=== PATIENT | female | born 1980 | race Caucasian/White ===

== ENCOUNTER → 2024-08-07 09:51 | Outpatient (BNVA) | payer OTHER, SELFPAY | PROVIDERS: PCP Family Medicine; Visit Provider Surgery | DX: R10.9 Unspecified abdominal pain (principal); Z12.11 Encounter for screening for malignant neoplasm of colon; R12 Heartburn | CPT/HCPCS: 86003; 86008 ==

== ENCOUNTER 2024-08-12 09:48 | Day surgery (SDC) | payer OTHER, SELFPAY ==
[2024-08-12 10:20] VITALS: BP 157/110; PULSE 100; RESP 18; TEMP 36.5; O2SAT 97; BMI 36.6
[2024-08-12 10:26] LABS: OR HCG Qualitative Urine Negative (Negative)
--- NOTE | 2024-08-12 10:32 | ANES.PREANE2 ---
Pre-Anesthetic Assessment Height/Weight: Height 1.65 m Weight 99.79 kg Temp Pulse Resp BP Pulse Ox O2 Del Method 97.7 F 100 18 157/110 97 Room Air 08/12/24 10:20 08/12/24 10:20 08/12/24 10:20 08/12/24 10:20 08/12/24 10:20 08/12/24 10:20 Operation Date: 08/12/24 11:15 Proposed Procedures p EGD 56424, 00263, G0121, Z12.11 R12, R10.9(Not Applicable) - Marcel Gonzalez DO s Colonoscopy(Not Applicable) - Marcel Gonzalez DO Familial anesthetic complications: None Was Beta Karen taken within 24 hours: N/A Was Clonidine taken within 24 hours: N/A Last intake: Intake Last Liquid Date 08/11/24 Last Liquid Time 23:30 Last Solid Date 08/10/24 Last Solid Time 22:00 Social No alcohol and No tobacco (Marijuana daily) Exam alert, oriented x 3, clear to auscultation bilaterally and regular rate & rhythm Airway Submandibular: within normal limits Cervical ROM: within normal limits Mallampati: Class II Dentition: full Comments: Comments: Bridge History/ROS No significant history except as noted and No significant complaints Pulmonary None reported CV/HEM Anemia and Hypertension POTS Chronic Renal Insufficiency (CKD stage 2) Hepatic None reported GI Gastroesophageal Reflux Disease (Controlled with meds) Metabolic Goiter Musc/skel Rheumatoid Arthritis Neuropsych None reported Anesthetic Plan ASA status: 3 Anesthesia: Anesthesia Evaluation, General and MAC Risk of > 500 ml blood loss (7ml/kg in children): No Medications/Allergies Home Medications ?Medication ?Instructions ?Recorded ?Confirmed ?Last Taken ?Type amitriptyline 75 mg tablet 75 mg PO QDAY 08/07/24 08/12/24 08/11/24 History cyanocobalamin (vitamin B-12) 1,000 mcg IM .1x month 08/07/24 08/12/24 Unknown History 1,000 mcg/mL injection solution diclofenac sodium 75 mg 75 mg PO DAILY PRN Pain 08/07/24 08/12/24 08/11/24 History tablet,delayed release diltiazem HCl 180 mg 180 mg PO DAILY 08/07/24 08/12/24 08/11/24 History capsule,extended release 24 hr (Cardizem CD) fexofenadine 180 mg tablet 180 mg PO DAILY 08/07/24 08/12/24 08/11/24 History (Allergy Relief (fexofenadine)) levonorgestrel 0.15 mg-ethinyl 1 tab PO DAILY 08/07/24 08/12/24 08/11/24 History estradiol 0.03 mg tablet (Evgeny (28)) lisinopril 10 mg tablet 10 mg PO QDAY 08/07/24 08/12/24 08/11/24 History omeprazole 40 mg capsule,delayed 40 mg PO QDAY 08/07/24 08/12/24 08/11/24 History release paroxetine HCl 20 mg tablet 20 mg PO QAM 08/07/24 08/12/24 08/11/24 History Allergies Allergy/AdvReac Type Severity Reaction Status Date / Time cephalexin (From Keflex) Allergy ALGY-Hives Verified 08/11/24 12:22 chicken derived Allergy ALGY-Hives Verified 08/12/24 10:18 ciprofloxacin (From Cipro) Allergy ALGY-Hives Verified 08/11/24 12:22 erythromycin base Allergy ALGY-Hives Verified 08/11/24 12:22 Peanut and Related Legumes Allergy ALGY-Hives Verified 08/12/24 10:18 Penicillins Allergy was told Verified 08/11/24 12:22 as a baby not to take Pork/Porcine Containing Allergy ALGY-Hives Verified 08/12/24 10:18 Products Sulfa (Sulfonamide Allergy ALGY-Hives Verified 08/11/24 12:22 Antibiotics) PFSH Anesthesia Family History Mother Diabetes Family/Other Cancer Aunt on mothers side-colon cancer Family/Other Colon cancer uncle on dads side Grandfather Cancer prostate Social History Smoking and tobacco/nicotine status: never used tobacco/nicotine Alcohol intake: current Alcohol intake frequency: few times a month Female Reproductive History Date of last menstrual period: 08/10/24 Data Anesthesia Cardiac Studies: No Data to Display
[2024-08-12] MEDS: sodium chloride 0.9% 500 ML 15 ML IV (10:34)
--- NOTE | 2024-08-12 10:45 | W.PM.OPSUD ---
Surgery/Procedure H&P Update DATE OF PROCEDURE: August 12, 2024 DATE H&P PERFORMED: 08/07/24 H&P UPDATE INFORMATION: I have reviewed H&P completed within last 30 days, I have examined patient prior to procedure and No changes to prior documentation PLANNED PROCEDURE: Operation Date: 08/12/24 11:15 Proposed Procedures p EGD 52663, 95687, G0121, Z12.11 R12, R10.9(Not Applicable) - DO kelli Cunningham Colonoscopy(Not Applicable) - Marcel Gonzalez DO
[2024-08-12 11:13] VITALS: BP 130/86; PULSE 90; RESP 18; TEMP 36.3; O2SAT 98
[2024-08-12 11:25] VITALS: BP 133/97; PULSE 91; RESP 18; TEMP 36.2; O2SAT 98
--- NOTE | 2024-08-12 11:41 | ANE.PACU2 ---
Inpatient post-anesthesia follow up: Airway intact: Yes Vital signs: Temperature 97.2 F Pulse Rate 91 Respiratory Rate 18 Blood Pressure 133/97 Pulse Oximetry 98 Oxygen Delivery Me thod Room Air Oxygen Flow Rate Fraction of Inspir ed Oxygen Hydration adequate: Yes Nausea and vomiting: No Pain level: 1 Mental status: Baseline
[2024-08-12 12:03] LABS: C.Diff PCR (Lab) NEGATIVE (Negative)
== END 2024-08-12 11:41 | disposition home or self-care (01) ==
PROVIDERS: Student in an Organized Health Care Education/Training Program; PCP Family Medicine; Visit Provider Surgery
PROC: 0DJ08ZZ Inspection of Upper Intestinal Tract, Via Natural or Artificial Opening Endoscopic (ICD-10-PCS; principal; 2024-08-12 11:15)
PROC: 0DJD8ZZ Inspection of Lower Intestinal Tract, Via Natural or Artificial Opening Endoscopic (ICD-10-PCS; CPT 45378; 2024-08-12 11:15)
DX: K52.9 Noninfective gastroenteritis and colitis, unspecified (principal); K29.70 Gastritis, unspecified, without bleeding; K21.00 Gastro-esophageal reflux disease with esophagitis, without bleeding; K44.9 Diaphragmatic hernia without obstruction or gangrene; Z80.0 Family history of malignant neoplasm of digestive organs; N18.2 Chronic kidney disease, stage 2 (mild); I12.9 Hypertensive chronic kidney disease with stage 1 through stage 4 chronic kidney disease, or unspecified chronic kidney disease; G90.A Postural orthostatic tachycardia syndrome [POTS]; D64.9 Anemia, unspecified; M06.9 Rheumatoid arthritis, unspecified; Z79.899 Other long term (current) drug therapy; Z88.2 Allergy status to sulfonamides; Z88.0 Allergy status to penicillin; Z88.8 Allergy status to other drugs, medicaments and biological substances; Z91.014 Allergy to mammalian meats; Z91.010 Allergy to peanuts; Z91.018 Allergy to other foods
CPT/HCPCS: 43239; 45380; 81025; 82274; 83630; 87045; 87177; 87209; 87427; 87449; 87493; 88305; J2704; J7040